=== PATIENT | female | born 1990 ===

== ENCOUNTER 2018-12-23 14:27 | Emergency (ER) | payer OTHER ==
--- NOTE | 2018-12-23 14:48 | UC ---
Eye Complaint HPI - HPI Summary HPI Summary: 28 y/o male presents to the urgent care c/o Left eye irritation started Saturday into Saturday. Saturday morning started to have pain in the left eye. Called cosmetic chemist who ordered Cyclopentalate HCL drops TID. Attempted driving back to [place] but with pain and photophobia can barely open eyes. Denies headache. - History of Current Complaint Stated Complaint: LEFT EYE CONCERN Time Seen by Provider: 12/23/18 14:47 Hx Obtained From: Patient Onset/Duration: Gradual Onset, Lasting Days - 1 day, Still Present Timing: Constant Severity Initially: Moderate Severity Currently: Severe Pain Intensity: 10 - left eye pain Pain Scale Used: 0-10 Numeric Location of Injury: Conjunctiva - left eye red conjunctiva w/ clear eye discahrge, photophobia Character: Foreign Body Sensation Aggravating Factor(s): Light, Other - open his eye Alleviating Factor(s): Darkness Associated Signs And Symptoms: Positive: Photophobia, Drainage (Clear). Negative: Vision Impairment Bilateral, Fever, Swelling - Risk Factors Penetrating Injury Risk Factor: Negative Globe Rupture Risk Factors: Negative Acute Glaucoma Risk Factors: Negative Optic Artery Occlusion Risk Factors: Negative - Allergies/Home Medications Allergies/Adverse Reactions: Allergies Allergy/AdvReac Type Severity Reaction Status Date / Time No Known Allergies Allergy Verified 12/23/18 14:55 Home Medications: Home Medications Cyclopentolate HCl 1 dose OP TID 12/23/18 [History Confirmed 12/23/18] PMH/Surg Hx/FS Hx/Imm Hx Previously Healthy: Yes - Pt denies PMHX - Family History Known Family History: Positive: Hypertension - Social History Occupation: Employed Full-time Lives: With Family Review of Systems All Other Systems Reviewed And Are Negative: Yes Constitutional: Positive: Negative Skin: Positive: Negative Eyes: Positive: Drainage - clear, Eye Redness - left eye, Photophobia ENT: Positive: Negative Respiratory: Positive: Negative Cardiovascular: Positive: Negative Gastrointestinal: Positive: Negative Genitourinary: Positive: Negative Motor: Positive: Negative Neurovascular: Positive: Negative Musculoskeletal: Positive: Negative Neurological: Positive: Negative Psychological: Positive: Negative Is Patient Immunocompromised?: No Physical Exam - Summary Physical Exam Summary: Vital Signs Reviewed: Yes General: Well appearing, well nourished male in no apparent pain distress Eyes: Positive: Conjunctiva Inflamed - Visual acuity: WNL,Visual sanchez: full to confrontation. PERRLA, EOMI intact w/out limitation or complaint of pain. eyelashes clear. mild tearing and yellowish drainage observed. No ciliary flush. No chemosis, No photophobia. Normal fundoscopic exam; no proptosis, exophthalmos, nystagmus. ENT: Positive: Normal ENT inspection, Hearing grossly normal, Pharynx normal, Nasal congestion, Nasal drainage - clear, TMs normal - B/L external ear canal clear , TM's WNL. Negative: Tonsillar swelling, Tonsillar exudate Neck: Positive: Supple, Nontender, No Lymphadenopathy Respiratory: Positive: Chest nontender, Lungs clear, Normal breath sounds, No respiratory distress Cardiovascular: Positive: RRR, No Murmur, Pulses Normal, Brisk Capillary Refill Abdomen Description: Positive: Nontender, No Organomegaly, Soft. Negative: CVA Tenderness (R), CVA Tenderness (L) Bowel Sounds: Positive: Present Musculoskeletal: Positive: Strength Intact, ROM Intact, No Edema Neurological Exam: Normal Psychological Exam: Normal Skin Exam: Normal Triage Information Reviewed: Yes Eye Complaint Course/Dx - Differential Dx/Diagnosis Differential Diagnosis/HQI/PQRI: Conjunctivitis, Corneal Abrasion, Glaucoma, Keratitis, Uveitis Provider Diagnosis: Acute left eye pain, Corneal abrasion Discharge - Sign-Out/Discharge Documenting (check all that apply): Patient Departure - D/C home All imaging exams completed and their final reports reviewed: No Studies - Discharge Plan Condition: Stable Disposition: HOME Patient Education Materials: Corneal Abrasion (ED), Eye Pain (ED) Referrals: Ze Jeong MD [Medical Doctor] - As Soon As Possible No Primary Care Phys,NOPCP [Primary Care Provider] - Additional Instructions: 1- I spoke w/ line operator DR Jeong's ofice and he can see you inmediately for further evaluation and treatment on your sever eye pain DR Jeong [facility] 2nd floor [place] [id number] Tef: [phone] - Billing Disposition and Condition Condition: STABLE Disposition: Home
[2018-12-23 14:58] VITALS: BP 139/86
[2018-12-23] MEDS ORDERED: Tetracaine 0.5% OPTH.SOL 4 ML* 1 DROP BTL LEFT EYE ONE (15:11)
[2018-12-23] MEDS ORDERED: Fluorescein Sodium TOPICAL* 1 MG TEST STRIP OPHTHALMIC ONE (15:12)
[2018-12-23] MEDS ORDERED: Eye Irrigation Solution 30 ML BOTTLE LEFT EYE ONE (15:12)
[2018-12-23] MEDS ORDERED: Ibuprofen TAB* 400 MG PO ONE (15:34)
== END 2018-12-23 15:42 | disposition home or self-care (01) ==
LOC: EDSEX → UCCORT 14:27
DX: S05.02XA Injury of conjunctiva and corneal abrasion without foreign body, left eye, initial encounter (principal); X58.XXXA Exposure to other specified factors, initial encounter; Y92.9 Unspecified place or not applicable
CPT/HCPCS: 99202; A9270-GY; G0463